=== PATIENT | male | born 1965 | race African-American/Black ===

== ENCOUNTER 2016-07-06 19:54 | Emergency (ER) | payer OTHER ==
[~2016-07-06] VITALS: Ht 180.3 cm; Wt 103.7 kg
[~2016-07-06 19:54] MED LIST: AUGMENTIN875 MG PO; COLACE100 MG PO; MOTRIN800 MG PO; PERCOCET 5/31 TABLET PO; ROBITUSSIN AC,T10 ML PO
[2016-07-06 20:31] LABS: HEMATOCRIT 43.7 % (38.0-50.0); MCH 28.2 PG (29.0-34.0); MCHC 34.6 G/DL (30.0-36.0); MCV 81.5 FL (86-99); MEAN PLAT.VOLUME 11.6 uM^3 (9.0-12.4); PLATELET COUNT 126 K/uL (156-360); RBC DIS.WIDTH-CV 14.8 % (11.8-14.6); RBC DIS.WIDTH-SD 43.9 % (39-53); RED BLOOD COUNT 5.36 M/uL (4.00-5.50); WHITE BLOOD COUNT 4.8 K/uL (4.1-10.2)
[2016-07-06 20:41] LABS: CHLORIDE 100 mEq/L (99-109); POTASSIUM 3.7 mEq/L (3.7-5.4); SODIUM 138 mEq/L (136-147)
[2016-07-06 20:43] LABS: GLUCOSE 104 mg/dL (70-99)
[2016-07-06 20:44] LABS: ANION GAP 10 MEQ/L (2-14)
[2016-07-06 20:45] LABS: TOTAL BILIRUBIN 0.4 mg/dL (0.0-1.0)
[2016-07-06 20:47] LABS: ALKALINE PHOSPHATASE 98 IU/L (3-129); GFR ESTIMATE (CALCULATED) 56 mL/min/
[2016-07-06 20:48] LABS: UREA NITROGEN (BUN) 12 mg/dL (9-23)
[2016-07-06 20:50] LABS: LIPASE 31 U/L (1.0-51.0)
[2016-07-06 20:55] LABS: ADD MIUA? YES; BILIRUBIN NEGATIVE; BLOOD NEGATIVE; COLOR YELLOW ((YELLOW)); GLUCOSE (STRIP) NEGATIVE; KETONES NEGATIVE; LEUKOCYTES NEGATIVE; NITRITE NEGATIVE; PROTEIN (STRIP) 100; SPECIFIC GRAVITY 1.015 (1.000-1.030); UROBILINOGEN 0.2 MG/DL (0.2-1.0)
[2016-07-06 21:00] LABS: BACTERIA NONE SEEN /HPF; EPITHELIAL CELLS RARE /HPF; HYALINE CASTS 0-5 /LPF; MUCUS TRACE /LPF; RED BLOOD CELLS 0-5 /HPF (0-5); UCUL ADDED? NO
[2016-07-06 22:44] LABS: INFLUENZA A VIRAL ANTIGEN NEGATIVE; INFLUENZA B VIRAL ANTIGEN POSITIVE
[2016-07-06] MEDS ORDERED: ZOFRAN ODT4 MG PO (23:14)
[2016-07-06 23:19] VITALS: BP 100/83
== END 2016-07-06 23:27 | disposition home or self-care (01) ==
LOC: EXP 19:54 → EME 19:54 → EXP 23:27
PROVIDERS: Nurse Practitioner Family
DX: J10.1 Influenza due to other identified influenza virus with other respiratory manifestations (principal); E86.0 Dehydration; N28.9 Disorder of kidney and ureter, unspecified
CPT/HCPCS: 80053; 81003; 83690; 85027; 87502; 99281; 99285; J1885; J2405; J7030